=== PATIENT | male | born 1960 | race Caucasian/White ===

== ENCOUNTER 2016-06-28 11:10 | Emergency (ER) | payer BC ==
[2016-06-28] MEDS ORDERED: SODIUM CHLORIDE 0.9% FLUSH 10 ML SOL IV PRN (11:44)
[2016-06-28 11:45] VITALS: TEMP 98.9
[2016-06-28] MEDS ORDERED: POTASSIUM CHLORIDE 10 MEQ TER PO SCH (11:45)
[2016-06-28] MEDS ORDERED: POTASSIUM CHLORIDE 10 MEQ TER ONE (11:47)
[2016-06-28 13:41] VITALS: RESP 20
[2016-06-28 13:44] VITALS: BP 124/69; PULSE 99; O2SAT 91
== END 2016-06-28 12:55 | disposition short-term general hospital (02) ==
LOC: ED 11:10
DX: M25.411 Effusion, right shoulder (principal); Z98.890 Other specified postprocedural states; D72.829 Elevated white blood cell count, unspecified; R50.9 Fever, unspecified; E87.6 Hypokalemia
CPT/HCPCS: 87804; 99284